=== PATIENT | female | born 1995 | race Caucasian/White ===

== ENCOUNTER → 2018-04-21 | Outpatient (CLI) | payer OTHER ==
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
== END ==
LOC: M LRY 09:45
PROVIDERS: ATTEND Nurse Practitioner Family
DX: S39.92XA Unspecified injury of lower back, initial encounter (principal); W10.8XXA Fall (on) (from) other stairs and steps, initial encounter; Y92.018 Other place in single-family (private) house as the place of occurrence of the external cause
CPT/HCPCS: 72220; 96372; G0463; J1885

== ENCOUNTER → 2018-12-23 | Outpatient (CLI) | payer OTHER ==
[~2018-12-23] MED LIST: ISOVUE-370 76% 100ML VIAL (Q9967) As Ordered ONE
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
== END ==
LOC: M RADPRO 11:56
PROVIDERS: ATTEND Obstetrics & Gynecology
DX: N97.9 Female infertility, unspecified (principal)
CPT/HCPCS: 58340; 74740; Q9967

== ENCOUNTER 2019-05-11 15:34 | Emergency (ER) | payer OTHER ==
[~2019-05-11] VITALS: Ht 162.6 cm; Wt 110.9 kg
[2019-05-11] MEDS ORDERED: LEXA1TAB PO (17:40)
[2019-05-11] MEDS ORDERED: IBUPROFEN 600 MG TAB PO ONE (18:15)
[2019-05-11 18:36] LABS: BASO % 0.3 % (0.0-1.0); EOS # 0.1 10^3/uL (0.0-0.5); EOS % 1.3 % (0.0-3.0); HEMATOCRIT 43.1 % (36.0-47.0); LYMPH # 2.8 10^3/uL (1.5-5.0); LYMPH % 30.2 % (24.0-44.0); MEAN CORPUSCULAR HEMOGLOBIN 27.8 pg (27.0-33.0); MEAN CORPUSCULAR HGB CONC 32.5 g/dl (32.0-36.5); MEAN CORPUSCULAR VOLUME 85.5 fl (80.0-96.0); MONO # 0.4 10^3/uL (0.0-0.8); MONO % 4.2 % (0.0-5.0); NEUTROPHILS % 63.6 % (36.0-66.0); PLATELET COUNT, AUTOMATED 370 10^3/uL (150-450); RED BLOOD COUNT 5.04 10^6/uL (4.00-5.40); WHITE BLOOD COUNT 9.4 10^3/uL (4.0-10.0)
[2019-05-11 19:00] LABS: C REACTIVE PROTEIN QUANTITATIV 1.08 MG/DL (0.00-0.30)
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
[2019-05-11 19:11] LABS: ERYTHROCYTE SEDIMENTATION RATE 8 mm/hr (0-20)
[2019-05-11] MEDS ORDERED: DICL1GEL3 TOP (19:45)
[2019-05-11] MEDS ORDERED: NAPR-837 PO (19:45)
[2019-05-11 19:54] VITALS: BP 142/90
== END 2019-05-11 19:57 | disposition home or self-care (01) ==
LOC: M ED 15:34
DX: M25.521 Pain in right elbow (principal)

== ENCOUNTER → 2019-06-19 | Outpatient (CLI) | payer OTHER ==
[~2019-06-19] MED LIST changes: +DICL1GEL3 TOP; -ISOVUE-370 76% 100ML VIAL (Q9967) As Ordered ONE; +LEXA1TAB PO; +NAPR-837 PO
--- NOTE | 2019-06-19 18:20 | REP ---
Clinical: Cough . Comparison: None . Technique: PA and lateral. Findings: The mediastinum and cardiac silhouette are normal. The lung hyman are clear and without acute consolidation, effusion, or pneumothorax. The skeletal structures are intact and evidence for chronic dextroconvex scoliosis is noted. Impression: 1. No acute cardiopulmonary process. Electronically Signed by Tee Shah MD 06/19/2019 06:12 P
== END ==
LOC: M LRY 17:46
PROVIDERS: ATTEND Physician Assistant
DX: R05 Cough (principal)
CPT/HCPCS: 71046; 81002; 81025; 87804; G0463

== ENCOUNTER 2020-01-30 15:51 | Emergency (ER) | payer OTHER ==
[~2020-01-30] VITALS: Ht 162.6 cm; Wt 114.6 kg
[2020-01-30] MEDS ORDERED: IBUP-1114 PO (16:00)
[2020-01-30 16:49] VITALS: BP 136/76
[2020-01-30] MEDS ORDERED: CYCL-707 PO (16:50)
[2020-01-30] MEDS ORDERED: NAPR-885 PO (16:50)
[2020-01-30] MEDS ORDERED: NAPROXEN 250 MG TAB PO ONE (17:00)
== END 2020-01-30 17:05 | disposition home or self-care (01) ==
LOC: M ED 15:51
DX: M62.838 Other muscle spasm (principal); M43.6 Torticollis; Z79.899 Other long term (current) drug therapy

== ENCOUNTER 2020-03-05 11:55 | Emergency (ER) | payer OTHER ==
[~2020-03-05] VITALS: Ht 162.6 cm; Wt 112.9 kg
[2020-03-05 11:55] VITALS: BP 134/93
[~2020-03-05 11:55] MED LIST changes: +CYCL-707 PO; +IBUP-1114 PO; +NAPR-885 PO
[2020-03-05] MEDS ORDERED: KETOROLAC TROMETHAMINE 10 MG TAB PO ONE (13:15)
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
== END 2020-03-05 13:56 | disposition home or self-care (01) ==
LOC: M ED 11:55
DX: R68.84 Jaw pain (principal); M54.81 Occipital neuralgia; T76.11XA Adult physical abuse, suspected, initial encounter; Y92.89 Other specified places as the place of occurrence of the external cause; F32.9 Major depressive disorder, single episode, unspecified

== ENCOUNTER 2020-08-26 21:59 | Emergency (ER) | payer OTHER ==
[~2020-08-26] VITALS: Ht 162.6 cm; Wt 116.2 kg
[2020-08-26 22:00] VITALS: BP 149/83
[2020-08-26] MEDS ORDERED: LIDOCAINE 2% JELLY 6 ML SYRINGE TOP ONE (22:30)
[2020-08-26] MEDS ORDERED: diphenhydrAMINE 50MG CAP PO ONE (22:30)
[2020-08-26] MEDS ORDERED: ALOE1GEL2 EX (22:45)
[2020-08-26] MEDS ORDERED: BENA25CA4 PO (22:45)
== END 2020-08-26 22:54 | disposition home or self-care (01) ==
LOC: M ED 21:59
DX: L55.0 Sunburn of first degree (principal); F32.9 Major depressive disorder, single episode, unspecified

== ENCOUNTER 2021-03-27 17:41 | Emergency (ER) | payer OTHER ==
[~2021-03-27] VITALS: Ht 162.6 cm; Wt 114.0 kg
[~2021-03-27 17:41] MED LIST changes: +ALOE1GEL2 EX; +BENA25CA4 PO
[2021-03-27 17:42] VITALS: BP 135/71
[2021-03-27] MEDS ORDERED: IBUP1TAB7 PO (17:56)
[2021-03-27] MEDS ORDERED: ACETAMINOPHEN 325 MG TAB PO ONE (18:35)
[2021-03-27 19:39] LABS: RSV AMPLIFICATION NEGATIVE (NEGATIVE)
--- OUTSIDE RECORDS SUMMARY | 2021-03-27 21:43 | CCD | Continuity of Care Document ---
Author Author Anne Marie GREEN Organization Unknown Address [address] [place] [address] Phone [phone] Care Team Providers Care Manager Android Name Role Phone [facility] [phone] AUTM [phone] Problems Active Problems Provider Date Polycystic ovaries Shreya Gaspar NP Onset: 05/28/2018 Social History Type Date Description Comments Sex Unknown ETOH Use Denies alcohol use Tobacco Use Start: Unknown Patient has never smoked Recreational Drug Use Denies Drug Use Exercise Type/Frequency Exercises regularly Allergies and adverse reactions Active Allergies Criticality Reaction | Severity Comments Date NKDA Unable to assess criticality 05/18/2018 NKEA Unable to assess criticality 05/18/2018 NKFA Unable to assess criticality 05/18/2018 Medications Active Medications SIG Qnty Indications Ordering Provide r Date Flonase Allergy Relief 50mcg/Act Suspension 2 sprays each nostril daily 19.8ml TIFFANY Ellison 03/02/2021 No Active Medications Unknown - 03/02/2021 Immunizations Description No Information Available Vital Signs Date Vital Result Comment 03/02/2021 7:44am BP Systolic 122 mmHg BP Diastolic 80 mmHg Heart Rate 103 /min Body Temperature 97.7 F Respiratory Rate 16 /min O2 % BldC Oximetry 99 % Weight 247.50 lb Weight 112.266 kg Height 64 inches 5'4" BMI (Body Mass Index) 42.5 kg/m2 BSA (Body Surface Area) 2.14 m2 04/06/2019 7:45am BP Systolic 118 mmHg BP Diastolic 78 mmHg Heart Rate 92 /min Body Temperature 98.4 F Respiratory Rate 16 /min O2 % BldC Oximetry 98 % Weight 246.25 lb Weight 111.699 kg Height 64 inches 5'4" BMI (Body Mass Index) 42.3 kg/m2 BSA (Body Surface Area) 2.14 m2 Results Description No Information Available Procedures Description No Information Available Medical Devices Description No Information Available Encounters Description No Information Available Assessments Description No Information Available Plan of Treatment Future Appointment(s):* 03/16/2021 8:20 am - TIFFANY Brito at [facility] 03/02/2021 - TIFFANY Brito* All * New Medication:* Flonase Allergy Relief 50 mcg/Act - 2 sprays each nostril daily * - * No Active Medications - Functional Status Description No Information Available Mental Status Description No Information Available Referrals Description No Information Available
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
== END 2021-03-27 21:35 | disposition left against medical advice (07) ==
LOC: M ED 17:41
DX: Z53.21 Procedure and treatment not carried out due to patient leaving prior to being seen by health care provider (principal)